=== PATIENT | female | born 1990 | race African-American/Black ===

== ENCOUNTER 2023-08-16 16:54 | Emergency (ER) | payer MEDICAID ==
[~2023-08-16] VITALS: Ht 167.6 cm; Wt 77.5 kg
[2023-08-16 17:16] VITALS: O2SAT 100
[2023-08-16] MEDS ORDERED: ACET325T52 PO (17:16)
[2023-08-16] MEDS ORDERED: OLAN10TA72 PO (17:16)
[2023-08-16] MEDS ORDERED: TRAZ-251 PO (17:16)
[2023-08-16] MEDS ORDERED: GABA-529 PO (17:16)
[2023-08-16] MEDS ORDERED: LURA40TA2 PO (17:16)
[2023-08-16] MEDS ORDERED: ONDA4TAB50 PO (17:16)
[2023-08-16] MEDS ORDERED: DULO20CA18 PO (17:16)
[2023-08-16] MEDS ORDERED: ARIP5TAB58 PO (17:16)
[2023-08-16] MEDS ORDERED: CLON1PAT10 TD (17:16)
[2023-08-16] MEDS ORDERED: DIPH25TA26 PO (17:16)
[2023-08-16] MEDS ORDERED: HYDR50TA55 PO (17:16)
[2023-08-16 19:56] LABS: CLARITY URINE TURBID (CLEAR); COLOR URINE DARK YELLOW (YELLOW); GLUCOSE URINE NEGATIVE (NEGATIVE); KETONES URINE 3+ (NEGATIVE); LEUKOCYTE ESTERASE URINE NEGATIVE (NEGATIVE); NITRITE URINE NEGATIVE (NEGATIVE); OCCULT BLOOD URINE NEGATIVE (NEGATIVE); PH URINE 5.5 (4.5-8.0); PROTEIN URINE 1+ (NEGATIVE); SPECIFIC GRAVITY URINE 1.034 (1.005-1.030)
[2023-08-16 20:13] LABS: BACTERIA URINE 2+; MUCUS URINE 2+ /lpf (< = 2+); RBC URINE 0-2 /hpf (0-2); SQUAMOUS EPITHELIAL CELL URINE 1+ /lpf (RARE/1+); WBC URINE 0-2 /hpf (0-2)
[2023-08-16 20:34] LABS: BASOPHILS % 0.4 % (0.0-2.0); EOSINOPHILS % 0.1 % (0.0-5.0); HEMATOCRIT. 45.7 % (36.0-48.0); LYMPHOCYTES % 24.6 % (20.0-50.0); MEAN CORPUSCULAR HEMOGLOBIN 28.1 pg (28.0-32.0); MEAN CORPUSCULAR HGB CONC 32.7 g/dL (31.0-37.0); MEAN CORPUSCULAR VOLUME 85.7 fL (81.0-99.0); MEAN PLATELET VOLUME 8.4 fl (7.4-10.4); MONOCYTES % 11.8 % (2.0-8.0); NEUTROPHILS % 63.1 % (40.0-76.0); PLATELET 303 x1000/uL (130-400); RED BLOOD CELL COUNT 5.34 mill/uL (4.2-5.4); RED CELL DISTRIBUTION WIDTH 16.1 % (11.6-14.6); WHITE BLOOD COUNT 12.4 x1000/uL (4.5-11.0)
[2023-08-16 20:39] LABS: HCG SCREEN NEGATIVE
[2023-08-16 20:45] LABS: ALANINE AMINOTRANSFERASE 16 IU/L (10-49); ALBUMIN 4.1 g/dL (3.2-4.8); ASPARTATE AMINOTRANSFERASE 33 IU/L (<34); BILIRUBIN TOTAL 0.9 mg/dL (0.1-1.0); CALCIUM 9.8 mg/dL (8.7-10.4); CARBON DIOXIDE 27 mEq/L (21-32); CHLORIDE 100 mEq/L (98-107); CREATININE 0.9 mg/dL (0.6-1.0); GLUCOSE 104 mg/dL (70-105); POTASSIUM 3.2 mEq/L (3.5-5.1); PROTEIN TOTAL 8.1 g/dL (6.0-8.3); SODIUM 138 mEq/L (136-145); TROPONIN I HIGH SENSITIVITY 4 ng/L (3.0-34); UREA NITROGEN BLOOD 8 mg/dL (9-23)
[2023-08-16] MEDS ORDERED: POTASSIUM CHLORIDE 20MEQ/PACKET PO ONE (22:30)
[2023-08-17 06:49] VITALS: TEMP 98.4
[2023-08-17 08:14] VITALS: BP 124/86; PULSE 86; RESP 15
== END 2023-08-17 09:03 ==
LOC: EDSEX 16:54 → ER 16:54
DX: R10.84 Generalized abdominal pain (principal); R11.2 Nausea with vomiting, unspecified; Z79.899 Other long term (current) drug therapy
CPT/HCPCS: 36415; 71045; 74176; 80053; 81003; 81025; 84484; 84703; 85025; 93005; 99291

== ENCOUNTER 2023-08-21 13:50 | Emergency (ER) | payer MEDICAID ==
[~2023-08-21] VITALS: Ht 167.6 cm; Wt 83.0 kg
[~2023-08-21 13:50] MED LIST: ACET325T52 PO; ARIP5TAB58 PO; CLON1PAT10 TD; DIPH25TA26 PO; DULO20CA18 PO; GABA-529 PO; HYDR50TA55 PO; LURA40TA2 PO; OLAN10TA72 PO; ONDA4TAB50 PO; TRAZ-251 PO
[2023-08-21 13:53] VITALS: O2SAT 99
[2023-08-21] MEDS ORDERED: ONDANSETRON HCL 4MG/2ML INJ IV ONE (15:00)
[2023-08-21] MEDS ORDERED: MAGNESIUM/ALUMINUM HYDROXIDE/SIMETHICONE 30ML UDC PO ONE (15:00)
[2023-08-21 15:42] LABS: BASOPHILS % 0.9 % (0.0-2.0); EOSINOPHILS % 1.3 % (0.0-5.0); HEMATOCRIT. 42.6 % (36.0-48.0); HEMOGLOBIN. 13.9 g/dL (12.0-16.0); LYMPHOCYTES % 31.7 % (20.0-50.0); MEAN CORPUSCULAR HEMOGLOBIN 27.8 pg (28.0-32.0); MEAN CORPUSCULAR HGB CONC 32.6 g/dL (31.0-37.0); MEAN CORPUSCULAR VOLUME 85.3 fL (81.0-99.0); MEAN PLATELET VOLUME 9.1 fl (7.4-10.4); MONOCYTES % 14.1 % (2.0-8.0); PLATELET 269 x1000/uL (130-400); RED CELL DISTRIBUTION WIDTH 15.5 % (11.6-14.6); WHITE BLOOD COUNT 6.7 x1000/uL (4.5-11.0)
[2023-08-21 15:55] LABS: ALANINE AMINOTRANSFERASE 19 IU/L (10-49); ALBUMIN 3.9 g/dL (3.2-4.8); ASPARTATE AMINOTRANSFERASE 19 IU/L (<34); BILIRUBIN TOTAL 0.4 mg/dL (0.1-1.0); CALCIUM 9.7 mg/dL (8.7-10.4); CARBON DIOXIDE 31 mEq/L (21-32); CHLORIDE 98 mEq/L (98-107); GLUCOSE 85 mg/dL (70-105); POTASSIUM 3.9 mEq/L (3.5-5.1); PROTEIN TOTAL 7.3 g/dL (6.0-8.3); SODIUM 137 mEq/L (136-145); UREA NITROGEN BLOOD 11 mg/dL (9-23)
[2023-08-21 16:00] LABS: HCG SCREEN NEGATIVE
[2023-08-21 16:06] LABS: TROPONIN I HIGH SENSITIVITY < 4 ng/L (3.0-34)
[2023-08-21 21:34] VITALS: BP 122/89; PULSE 78; RESP 17; TEMP 97.9
== END 2023-08-21 22:11 ==
LOC: ER 13:50
DX: R07.9 Chest pain, unspecified (principal); F41.9 Anxiety disorder, unspecified; F32.A Depression, unspecified; F20.9 Schizophrenia, unspecified
CPT/HCPCS: 80053; 84703; 85025; 84484; 36415; 99285; Z7610